=== PATIENT | female | born 1960 | race Two or more races ===

== ENCOUNTER 2020-01-07 05:30 | Day surgery (SDC) | payer OTHER ==
[~2020-01-07 05:30] MED LIST: COZAAR50 MG PO
[2020-01-07] MEDS ORDERED: MACROBID 100 M100 MG PO (09:22)
[2020-01-07] MEDS ORDERED: ULTRACET PO (09:23)
== END 2020-01-07 13:05 | disposition home or self-care (01) ==
LOC: CIR.AMB 05:30
PROVIDERS: ATTEND Obstetrics & Gynecology Gynecology
DX: N39.3 Stress incontinence (female) (male) (principal); Z20.828 Contact with and (suspected) exposure to other viral communicable diseases
CPT/HCPCS: 57288; C1771